=== PATIENT | male | born 1965 | race Caucasian/White ===

== ENCOUNTER 2019-09-15 13:07 | Outpatient (CLI) | payer OTHER, SELFPAY ==
--- NOTE | ~2019-09-15 | US_ITS ---
US scrotum doppler INDICATION: Left testicular swelling and pain TECHNIQUE: Testicular sonogram utilizing grayscale and color Doppler FINDINGS: The testes are normal in size and appearance. No focal lesions are seen. The right testes measures 3.3 x 2.9 x 2.2 cm centimeters, and the left testis measures 4 x 2.1 x 2.7 cm cm. There is n ormal vascular flow to both testes. Slightly increased flow at the left testicle compared with the ri ght. The left epididymis appears enlarged and heterogeneous with increased vascularity. Within the epididy mis there is a hypoechoic structure measuring 2.6 x 1.5 x 1.2 cm without internal flow, possibly a co mplicated epididymal cysts. There is no varicocele or hydrocele. IMPRESSION: 1. Enlarged heterogeneous left epididymis with increased flow in the epididymis and left testicle, c ompatible with epididymoorchitis. Focal hypoechoic mass of the left epididymis measures up to 2.6 cm, most likely a complicated epididymal cysts. Reviewed, dictated and finalized at location A. IMPRESSION: 1. Enlarged heterogeneous left epididymis with increased flow in the epididymi s and left testicle, compatible with epididymoorchitis. Focal hypoechoic mass o f the left epididymis measures up to 2.6 cm, most likely a complicated epididym al cysts.
== END 2019-09-15 13:08 | disposition home or self-care (01) ==
LOC: CHSIMG 13:12
PROVIDERS: PCP Internal Medicine; Visit Provider Internal Medicine
DX: N50.9 Disorder of male genital organs, unspecified (principal)
CPT/HCPCS: 76870; 93976